=== PATIENT | female | born 1950 | race Two or more races ===

== ENCOUNTER 2021-01-28 13:37 | Inpatient (IN) | payer OTHER ==
[~2021-01-28] VITALS: Ht 162.6 cm; Wt 123.4 kg
[2021-01-28] MEDS ORDERED: ACETAMINOPHEN 500 MG TAB PO ONE (15:45)
[2021-01-28 16:02] LABS: Basophils # (auto) 0 10 ^3/uL (0-0.2); Eosinophils # (auto) 0 10 ^3/uL (0-0.8); Hemoglobin 17.2 g/dL (12.2-16.2); Lymphocytes # (auto) 0.6 10 ^3/uL (0.4-5.4); Mean Corpuscular Hemoglobin 28.3 pg (28.0-32.0); Mean Corpuscular Hgb Conc. 32.1 g/dL (32.0-36.0); Mean Corpuscular Volume 88.3 fL (80.0-100.0); White Blood Cell 13.7 10^3/uL (4.4-10.8)
[2021-01-28 16:04] LABS: Basophils % (auto) 0.2 % (0.0-2.0); Hematocrit 53.5 % (36.0-46.0); Lymphocytes % (auto) 4.3 % (10.0-50.0); Monocytes # (auto) 0.7 10 ^3/uL (0-1.3); Monocytes % (auto) 5.3 % (0.0-12.0); Neutrophils # (auto) 12.4 10 ^3/uL (1.6-8.6); Neutrophils % (auto) 90.2 % (37.0-80.0); Nucleated Red Blood Cells % 0.2 %; Red Blood Cells 6.06 10^6/uL (4.0-5.20); Red Cell Distribution Width 14.9 % (11.8-14.3)
[2021-01-28 16:19] LABS: Albumin 3.6 g/dL (3.4-5.0); Anion Gap 15 (5-15); Blood Urea Nitrogen 52 mg/dL (7-18); Calcium 8.3 mg/dL (8.5-10.1); Carbon Dioxide 18 mmol/L (21-32); Chloride 102 mmol/L (98-107); Glucose 112 mg/dL (74-106); Potassium 3.6 mmol/L (3.5-5.1); Sodium 135 mmol/L (136-145)
[2021-01-28 16:22] LABS: Alanine Aminotransferase 96 U/L (13-56); BUN/Creatinine Ratio 15.8; GFR African American 18 mL/min; GFR Non-African American 15 mL/min
[2021-01-28 16:25] LABS: Alkaline Phosphatase 68 U/L (45-117); Aspartate Aminotransferase 157 U/L (15-37); Bilirubin, Total 0.6 mg/dL (0.2-1.0); Total Protein 8.1 g/dL (6.4-8.2)
[2021-01-28] MEDS ORDERED: HYDROmorphone HCL 2 MG/ML VL IV ONE (16:45)
[2021-01-28] MEDS ORDERED: ONDANSETRON HCL 4 MG/2 ML VIAL IV PRN (18:00)
[2021-01-28] MEDS ORDERED: HYDROmorphone HCL 2 MG/ML VL IV PRN (18:00)
[2021-01-28] MEDS ORDERED: HYDROcodone-ACET 10/325MG TAB PO PRN (18:00)
[2021-01-28] MEDS ORDERED: MORPHINE SULFATE INJECTION 2 MG/ML SYRG IV PRN ×2 (18:00→19:00)
[2021-01-28] MEDS ORDERED: NITROGLYCERIN 0.4 MG SL TAB SL PRN ×2 (18:00→19:00)
[2021-01-28] MEDS ORDERED: ACETAMINOPHEN 500 MG TAB PO PRN (18:00)
[2021-01-28] MEDS ORDERED: REMDESIVIR PER PHARMACY 0 ML IV SCH (18:00)
[2021-01-28] MEDS ORDERED: DOCUSATE SOD 100 MG CAP PO PRN (18:00)
[2021-01-28] MEDS: SODIUM CHLORIDE 0.9% 1,000 ML IV SCH (18:23)
[2021-01-28] MEDS: guaiFENesin-DM 100/10mg/5ml SYR PO SCH (18:38)
[2021-01-28] MEDS: ZINC SULFATE 220mg CAP or TAB PO SCH (18:38)
[2021-01-28] MEDS: AZITHROMYCIN 500MG/ 250ML 250 ML IV SCH (18:38)
[2021-01-28] MEDS: ASCORBIC ACID 1,000 MG TAB PO SCH (18:38)
[2021-01-28] MEDS: CHOLECALCIFEROL (VITD3) 2,000 UNIT CAP/TAB PO SCH (18:38)
[2021-01-28] MEDS: DexAMETHasone SOD PHOS 10MG/1ML VIAL INJ IV SCH (18:38)
[2021-01-28] MEDS ORDERED: HEPARIN SODIUM (PORCINE) 5000 UNITS/ML 1ML VIAL IV ONE (20:00)
[2021-01-28 20:21] LABS: INR 1.05 (0.9-1.15); Partial Thromboplastin Time 55.5 sec (23.6-33.0)
[2021-01-28 20:33] LABS: Magnesium 2.5 mg/dL (1.6-2.6)
[2021-01-28] MEDS: HEPARIN DRIP/D5W 100UNITS/ML 250 ML IV SCH (20:33)
[2021-01-28 21:11] LABS: CRP High Sensitivity 13.9 mg/dL (< 0.3)
[2021-01-28] MEDS ORDERED: HEPARIN SODIUM (PORCINE) 5000 UNITS/ML 1ML VIAL IV SCH (22:00)
[2021-01-28] MEDS: ALBUTEROL SULF HFA 90MCG INH 200DOSE IN PRN (23:05)
[2021-01-29 01:18] VITALS: BP 90/55
[2021-01-29 02:33] LABS: Urine Bacteria NONE SEEN /hpf (None Seen); Urine Blood 1+ /uL (Negative); Urine Hyaline Cast FEW /lpf (0 - 2); Urine Mucus FEW (None Seen); Urine Specific Gravity 1.019 (1.001-1.035); Urine WBC 13 /hpf (0 - 5)
[2021-01-29] MEDS: SODIUM CHLORIDE 0.9% 1,000 ML IV SCH (03:36)
[2021-01-29 04:02] LABS: INR 1.08 (0.9-1.15)
[2021-01-29 04:14] LABS: Partial Thromboplastin Time > 139.0 sec (23.6-33.0)
[2021-01-29 05:00] LABS: Basophils # (auto) 0 10 ^3/uL (0-0.2); Basophils % (auto) 0.1 % (0.0-2.0); Eosinophils # (auto) 0 10 ^3/uL (0-0.8); Hematocrit 43.6 % (36.0-46.0); Hemoglobin 14.4 g/dL (12.2-16.2); Mean Corpuscular Hemoglobin 28.4 pg (28.0-32.0); Mean Corpuscular Volume 86.1 fL (80.0-100.0); Monocytes # (auto) 0.5 10 ^3/uL (0-1.3); Monocytes % (auto) 2.8 % (0.0-12.0); Neutrophils # (auto) 14.8 10 ^3/uL (1.6-8.6); Neutrophils % (auto) 91.1 % (37.0-80.0); Nucleated Red Blood Cells % 0.1 %; Red Blood Cells 5.07 10^6/uL (4.0-5.20); White Blood Cell 16.2 10^3/uL (4.4-10.8)
[2021-01-29 05:23] LABS: Albumin 2.6 g/dL (3.4-5.0); Calcium 7.3 mg/dL (8.5-10.1); Potassium 3.3 mmol/L (3.5-5.1)
[2021-01-29 05:25] LABS: Bilirubin, Total 0.4 mg/dL (0.2-1.0); Total Protein 6.6 g/dL (6.4-8.2)
[2021-01-29] MEDS: guaiFENesin-DM 100/10mg/5ml SYR PO SCH ×2 (06:12→18:34)
[2021-01-29] MEDS: DexAMETHasone SOD PHOS 10MG/1ML VIAL INJ IV SCH (10:08)
[2021-01-29] MEDS: CHOLECALCIFEROL (VITD3) 2,000 UNIT CAP/TAB PO SCH (10:09)
[2021-01-29] MEDS: AZITHROMYCIN 500MG/ 250ML 250 ML IV SCH (10:09)
[2021-01-29] MEDS ORDERED: POTASSIUM CHL 20 Meq TABLET PO ONE ×2 (10:09→10:15)
[2021-01-29] MEDS: ASCORBIC ACID 1,000 MG TAB PO SCH (10:09)
[2021-01-29] MEDS: ZINC SULFATE 220mg CAP or TAB PO SCH (10:10)
[2021-01-29] MEDS: ALBUTEROL SULF HFA 90MCG INH 200DOSE IN PRN ×2 (10:47→20:59)
[2021-01-29 11:17] LABS: Albumin 2.5 g/dL (3.4-5.0); Calcium 7.4 mg/dL (8.5-10.1); Potassium 3.6 mmol/L (3.5-5.1)
[2021-01-29] MEDS: DOPamine 1600MCG/ML D5W 250 ML IV SCH (11:19)
[2021-01-29 11:20] LABS: BUN/Creatinine Ratio 18.1; Bilirubin, Total 0.4 mg/dL (0.2-1.0); Total Protein 6.7 g/dL (6.4-8.2)
[2021-01-29] MEDS: SODIUM BICARBONATE 50ML VIAL 50 ML in SOD CHL 0.45% 1,000 ML IV SCH ×2 (11:20→19:06)
[2021-01-29] MEDS ORDERED: HYDR25TA5 PO (11:28)
[2021-01-29] MEDS ORDERED: LEVO125T7 PO (11:28)
[2021-01-29] MEDS ORDERED: MECL-111 PO (11:28)
[2021-01-29] MEDS ORDERED: PRE5T PO (11:28)
[2021-01-29] MEDS ORDERED: LISI20TA28 PO (11:28)
[2021-01-29] MEDS ORDERED: TRAM50TA2 PO (11:28)
[2021-01-29] MEDS ORDERED: MYCO500T3 PO (12:09)
[2021-01-29 16:08] LABS: INR 1.27 (0.9-1.15)
[2021-01-29] MEDS: HEPARIN DRIP/D5W 100UNITS/ML 250 ML IV SCH ×2 (16:29→23:00)
[2021-01-29] MEDS: ATORVASTATIN 20 MG TAB PO SCH (22:18)
[2021-01-29 22:29] LABS: INR 1.05 (0.9-1.15)
[2021-01-29 22:35] LABS: Partial Thromboplastin Time > 139.0 sec (23.6-33.0)
[2021-01-30] VITALS (7 sets, daily range): BP systolic 114–126; BP diastolic 64–82
[2021-01-30] MEDS: SODIUM BICARBONATE 50ML VIAL 50 ML in SOD CHL 0.45% 1,000 ML IV SCH ×4 (01:30→23:25)
[2021-01-30] MEDS: guaiFENesin-DM 100/10mg/5ml SYR PO SCH ×2 (06:42→17:59)
[2021-01-30 07:25] LABS: Basophils # (auto) 0 10 ^3/uL (0-0.2); Basophils % (auto) 0.2 % (0.0-2.0); Eosinophils # (auto) 0 10 ^3/uL (0-0.8); Hematocrit 41.6 % (36.0-46.0); Hemoglobin 13.9 g/dL (12.2-16.2); Lymphocytes % (auto) 5.8 % (10.0-50.0); Mean Corpuscular Hemoglobin 28.6 pg (28.0-32.0); Mean Corpuscular Hgb Conc. 33.4 g/dL (32.0-36.0); Mean Corpuscular Volume 85.8 fL (80.0-100.0); Monocytes # (auto) 0.4 10 ^3/uL (0-1.3); Monocytes % (auto) 2.5 % (0.0-12.0); Neutrophils # (auto) 15.3 10 ^3/uL (1.6-8.6); Neutrophils % (auto) 91.5 % (37.0-80.0); Nucleated Red Blood Cells % 0.1 %; Red Blood Cells 4.85 10^6/uL (4.0-5.20); Red Cell Distribution Width 14.4 % (11.8-14.3); White Blood Cell 16.7 10^3/uL (4.4-10.8)
[2021-01-30 07:36] LABS: Potassium 3.1 mmol/L (3.5-5.1)
[2021-01-30 07:50] LABS: Albumin 2.4 g/dL (3.4-5.0); BUN/Creatinine Ratio 22.8; Bilirubin, Total 0.4 mg/dL (0.2-1.0); Total Protein 6.6 g/dL (6.4-8.2)
[2021-01-30] MEDS ORDERED: POTASSIUM CHL 20 Meq TABLET PO ONE (09:00)
[2021-01-30 09:01] LABS: INR 1.01 (0.9-1.15)
[2021-01-30 09:02] LABS: Partial Thromboplastin Time > 139.0 sec (23.6-33.0)
[2021-01-30] MEDS: DexAMETHasone SOD PHOS 10MG/1ML VIAL INJ IV SCH (10:27)
[2021-01-30] MEDS: ASCORBIC ACID 1,000 MG TAB PO SCH (10:27)
[2021-01-30] MEDS: AZITHROMYCIN 500MG/ 250ML 250 ML IV SCH (10:27)
[2021-01-30] MEDS: ZINC SULFATE 220mg CAP or TAB PO SCH (10:27)
[2021-01-30] MEDS: CHOLECALCIFEROL (VITD3) 2,000 UNIT CAP/TAB PO SCH (10:28)
[2021-01-30 11:22] LABS: Hepatitis C Antibody Negative (Negative)
[2021-01-30] MEDS: DOPamine 1600MCG/ML D5W 250 ML IV SCH (11:36)
[2021-01-30] MEDS: POTASSIUM CHL 20MEQ/100ML 100 ML IV SCH ×2 (12:35→14:20)
[2021-01-30] MEDS: ATORVASTATIN 20 MG TAB PO SCH (21:30)
[2021-01-30] MEDS: ALBUTEROL SULF HFA 90MCG INH 200DOSE IN PRN (22:13)
[2021-01-30 22:20] LABS: BUN/Creatinine Ratio 29.5; Calcium 7.4 mg/dL (8.5-10.1); Potassium 4.1 mmol/L (3.5-5.1)
[2021-01-30 23:01] LABS: Creatinine, Urine 68 mg/dL (30.0-125.0); Sodium Urine 49 mmol/L (40-220)
[2021-01-30 23:26] LABS: Protein, Urine 85.9 mg/dL (0.0-11.9)
[2021-01-31] VITALS (8 sets, daily range): BP systolic 105–151; BP diastolic 46–62
[2021-01-31] MEDS: SODIUM BICARBONATE 50ML VIAL 50 ML in SOD CHL 0.45% 1,000 ML IV SCH ×3 (04:00→19:46)
[2021-01-31] MEDS: guaiFENesin-DM 100/10mg/5ml SYR PO SCH ×2 (05:36→18:14)
[2021-01-31 07:06] LABS: Albumin 2.3 g/dL (3.4-5.0); Calcium 7.1 mg/dL (8.5-10.1); Potassium 4.2 mmol/L (3.5-5.1)
[2021-01-31 07:11] LABS: BUN/Creatinine Ratio 34.4; Bilirubin, Total 0.5 mg/dL (0.2-1.0); Total Protein 6.2 g/dL (6.4-8.2)
[2021-01-31 07:12] LABS: Basophils # (auto) 0 10 ^3/uL (0-0.2); Basophils % (auto) 0.1 % (0.0-2.0); Eosinophils # (auto) 0 10 ^3/uL (0-0.8); Hematocrit 42.6 % (36.0-46.0); Lymphocytes # (auto) 0.6 10 ^3/uL (0.4-5.4); Lymphocytes % (auto) 4.2 % (10.0-50.0); Mean Corpuscular Hgb Conc. 32.9 g/dL (32.0-36.0); Mean Corpuscular Volume 84.9 fL (80.0-100.0); Monocytes # (auto) 0.4 10 ^3/uL (0-1.3); Monocytes % (auto) 3.1 % (0.0-12.0); Neutrophils # (auto) 12.9 10 ^3/uL (1.6-8.6); Neutrophils % (auto) 92.6 % (37.0-80.0); Nucleated Red Blood Cells % 0.2 %; Red Blood Cells 5.02 10^6/uL (4.0-5.20); Red Cell Distribution Width 13.8 % (11.8-14.3)
[2021-01-31] MEDS: DexAMETHasone SOD PHOS 10MG/1ML VIAL INJ IV SCH (09:48)
[2021-01-31] MEDS: ENOXAPARIN SOD 100 MG/1 ML SYRINGE SC SCH ×2 (09:48→22:21)
[2021-01-31] MEDS: AZITHROMYCIN 500MG/ 250ML 250 ML IV SCH (09:48)
[2021-01-31] MEDS: DOPamine 1600MCG/ML D5W 250 ML IV SCH (12:05)
[2021-01-31] MEDS: ZINC SULFATE 220mg CAP or TAB PO SCH (12:23)
[2021-01-31] MEDS: ASCORBIC ACID 1,000 MG TAB PO SCH (12:23)
[2021-01-31] MEDS: CHOLECALCIFEROL (VITD3) 2,000 UNIT CAP/TAB PO SCH (12:24)
[2021-01-31] MEDS: LORazepam 2MG/ML-1ML VIAL IV PRN (15:24)
[2021-01-31] MEDS: ALBUTEROL SULF HFA 90MCG INH 200DOSE IN PRN (21:22)
[2021-01-31] MEDS: ATORVASTATIN 20 MG TAB PO SCH (22:00)
[2021-02-01] VITALS (23 sets, daily range): BP systolic 68–207; BP diastolic 34–95
[2021-02-01] MEDS: SODIUM BICARBONATE 50ML VIAL 50 ML in SOD CHL 0.45% 1,000 ML IV SCH ×3 (04:22→15:00)
[2021-02-01] MEDS: LORazepam 2MG/ML-1ML VIAL IV PRN (04:23)
[2021-02-01] MEDS: guaiFENesin-DM 100/10mg/5ml SYR PO SCH ×2 (06:12→17:04)
[2021-02-01] MEDS: CHOLECALCIFEROL (VITD3) 2,000 UNIT CAP/TAB PO SCH (09:29)
[2021-02-01] MEDS: ASCORBIC ACID 1,000 MG TAB PO SCH (09:29)
[2021-02-01] MEDS: ZINC SULFATE 220mg CAP or TAB PO SCH (09:29)
[2021-02-01] MEDS: DOPamine 1600MCG/ML D5W 250 ML IV SCH (09:31)
[2021-02-01 09:41] LABS: Basophils # (auto) 0 10 ^3/uL (0-0.2); Eosinophils # (auto) 0 10 ^3/uL (0-0.8); Monocytes # (auto) 0.3 10 ^3/uL (0-1.3); Nucleated Red Blood Cells % 0.2 %
[2021-02-01] MEDS: DexAMETHasone SOD PHOS 10MG/1ML VIAL INJ IV SCH (09:42)
[2021-02-01 09:43] LABS: Hematocrit 38.3 % (36.0-46.0); Lymphocytes # (auto) 0.5 10 ^3/uL (0.4-5.4); Lymphocytes % (auto) 4.9 % (10.0-50.0); Mean Corpuscular Hemoglobin 28.9 pg (28.0-32.0); Mean Corpuscular Volume 85.1 fL (80.0-100.0); Monocytes % (auto) 2.7 % (0.0-12.0); Neutrophils # (auto) 9.5 10 ^3/uL (1.6-8.6); Neutrophils % (auto) 92.4 % (37.0-80.0); Red Blood Cells 4.51 10^6/uL (4.0-5.20); Red Cell Distribution Width 14.3 % (11.8-14.3); White Blood Cell 10.3 10^3/uL (4.4-10.8)
[2021-02-01] MEDS: AZITHROMYCIN 500MG/ 250ML 250 ML IV SCH ×2 (09:43→17:03)
[2021-02-01] MEDS: ENOXAPARIN SOD 100 MG/1 ML SYRINGE SC SCH (09:43)
[2021-02-01 11:42] LABS: BUN/Creatinine Ratio 45.9; Calcium 6.8 mg/dL (8.5-10.1); Potassium 3.8 mmol/L (3.5-5.1)
[2021-02-01 11:43] LABS: Albumin 1.9 g/dL (3.4-5.0); Bilirubin, Total 0.4 mg/dL (0.2-1.0); CRP High Sensitivity 18.4 mg/dL (< 0.3); Total Protein 5.5 g/dL (6.4-8.2)
[2021-02-01] MEDS ORDERED: SUCCINYLCHOLINE CHLORIDE 20 MG/ML 10ML VIAL IV ONE (12:43)
[2021-02-01] MEDS ORDERED: ROCURONIUM 10MG/ML 10ML VIAL IV ONE (12:43)
[2021-02-01] MEDS ORDERED: ETOMIDATE (2MG/ML) 20ML VIAL IV ONE ×2 (12:43→13:00)
[2021-02-01] MEDS ORDERED: fentaNYL Drip 2500mCg/250mlNS 250 ML IV ONE (12:56)
[2021-02-01] MEDS ORDERED: DOBUTamine 1000MCG/ML 250 ML IV ONE (12:57)
[2021-02-01] MEDS ORDERED: MIDAZOLAM DRIP 50 mg/50mL 50 ML IV ONE (12:58)
[2021-02-01] MEDS ORDERED: NOREPINEPHRINE 8 MG/250ML KIT 250 ML IV SCH (13:00)
[2021-02-01] MEDS ORDERED: MIDAZOLAM DRIP 50 mg/50mL 50 ML IV SCH (13:00)
[2021-02-01] MEDS ORDERED: PROPOFOL 100 ML IV SCH (13:00)
[2021-02-01] MEDS ORDERED: fentaNYL Drip 2500mCg/250mlNS 250 ML IV SCH (13:00)
== END 2021-02-01 18:42 | DRG 208 ==
LOC: ER 13:37 → EDBD 13:37 → TELE 19:03 → TELE-EAST 01-29 20:15 → OBSVTOIN 01-30 13:49 → EAST 01-31 15:26 → TELE-E-ADS 02-01 01:28 → ICU WEST 02-01 13:18
PROVIDERS: ADMIT Internal Medicine; ATTEND Internal Medicine
PROC: 5A09357 Assistance with Respiratory Ventilation, Less than 24 Consecutive Hours, Continuous Positive Airway Pressure (ICD-10-PCS; 2021-01-31)
PROC: 5A1935Z Respiratory Ventilation, Less than 24 Consecutive Hours (ICD-10-PCS; principal; 2021-02-01)
PROC: 0BH17EZ Insertion of Endotracheal Airway into Trachea, Via Natural or Artificial Opening (ICD-10-PCS; 2021-02-01)
PROC: 06HM33Z Insertion of Infusion Device into Right Femoral Vein, Percutaneous Approach (ICD-10-PCS; 2021-02-01)
PROC: B54BZZA Ultrasonography of Right Lower Extremity Veins, Guidance (ICD-10-PCS; 2021-02-01)
PROC: 0W9930Z Drainage of Right Pleural Cavity with Drainage Device, Percutaneous Approach (ICD-10-PCS; 2021-02-01)
DX: U07.1 COVID-19 (principal); J12.82 Pneumonia due to coronavirus disease 2019; I21.A1 Myocardial infarction type 2; J96.01 Acute respiratory failure with hypoxia; N17.0 Acute kidney failure with tubular necrosis; E87.2 Acidosis; J98.11 Atelectasis; J93.9 Pneumothorax, unspecified; Z68.42 Body mass index [BMI] 45.0-49.9, adult; S82.851A Displaced trimalleolar fracture of right lower leg, initial encounter for closed fracture; W01.0XXA Fall on same level from slipping, tripping and stumbling without subsequent striking against object, initial encounter; E55.9 Vitamin D deficiency, unspecified; E66.01 Morbid (severe) obesity due to excess calories; E87.6 Hypokalemia; I12.9 Hypertensive chronic kidney disease with stage 1 through stage 4 chronic kidney disease, or unspecified chronic kidney disease; N18.9 Chronic kidney disease, unspecified; M06.9 Rheumatoid arthritis, unspecified; Z66 Do not resuscitate; Z79.899 Other long term (current) drug therapy; Y93.E1 Activity, personal bathing and showering; Y92.002 Bathroom of unspecified non-institutional (private) residence as the place of occurrence of the external cause; Y99.9 Unspecified external cause status; Z91.81 History of falling
CPT/HCPCS: 36415; 36600; 71045; 73600; 76700; 80048; 80053; 81001; 82306; 82570; 82728; 82805; 83605; 83615; 83735; 83970; 84100; 84156; 84300; 84443; 84484; 85025; 85379; 85610; 85730; 86141; 86803; 87340; 87426; 93005; 93306; 93970; 94002; 94640; 94660; 96374; 96375; G0378; J0330; J1100; J2250; J2704; J3480